=== PATIENT | female | born 1965 | race Caucasian/White ===

== ENCOUNTER 2021-07-12 11:11 | Inpatient (IN) | payer OTHER ==
[~2021-07-12] VITALS: Ht 170.2 cm; Wt 88.5 kg
[~2021-07-12 11:11] MED LIST: DOXYCYCLINE HY100 MG PO; TYLENOL-CODEINE1 TAB PO
[2021-07-12] MEDS ORDERED: LIPITOR20 MG PO (11:31)
[2021-07-12] MEDS ORDERED: CANDESARTAN CILE8 MG PO (11:31)
--- NOTE | 2021-07-12 11:31 | NUR ---
SE RECIBE PACIENTE ALERTA, ORIENTADA X 3 ESFERAS REFIERE TENER AREA DE PIERNA DERECHA SUPERIOR CON CELULITIS, SE ESTIMAN S/V SE UBICA EN AREA DE OBSERVACION.
== END 2021-07-15 11:37 | disposition home or self-care (01) | DRG 603 ==
LOC: ER 11:11 → SEC-K 11:56 → SURG 11:56
PROVIDERS: ADMIT Specialist; ATTEND Specialist
PROC: 0J9N0ZZ Drainage of Right Lower Leg Subcutaneous Tissue and Fascia, Open Approach (ICD-10-PCS; principal; 2021-07-13 10:15)
DX: L02.415 Cutaneous abscess of right lower limb (principal); L03.115 Cellulitis of right lower limb; Z20.822 Contact with and (suspected) exposure to COVID-19; I10 Essential (primary) hypertension; R73.03 Prediabetes